=== PATIENT | female | born 1975 | race African-American/Black ===

== ENCOUNTER 2018-09-09 13:33 | Emergency (ER) | payer BC, OTHER ==
[~2018-09-09] VITALS: Ht 170.2 cm; Wt 113.9 kg
[~2018-09-09 13:33] MED LIST: AMLO10TA4 PO; BENA10TA9 PO
[2018-09-09] MEDS ORDERED: hydrALAZINE HCL 50 MG TABLET PO ONE (15:00)
[2018-09-09] MEDS ORDERED: hydrALAZINE HCL 10 MG TABLET PO ONE (15:00)
[2018-09-09 15:12] VITALS: BP 173/89
== END 2018-09-09 15:14 | disposition home or self-care (01) ==
LOC: ER 13:40
DX: I10 Essential (primary) hypertension (principal); J45.909 Unspecified asthma, uncomplicated
CPT/HCPCS: Z7502

== ENCOUNTER 2019-02-17 19:09 | Emergency (ER) | payer OTHER ==
[~2019-02-17] VITALS: Ht 170.2 cm; Wt 115.2 kg
[~2019-02-17 19:09] MED LIST changes: +BENA10TA74 PO; -BENA10TA9 PO
--- NOTE | 2019-02-17 19:27 | NUR ---
PATIENT TO ER BED 9 BIB SELF C/O LUMP ON LEFT SIDE OF NECK. PATIENT STATES THAT SHE NOTICED IT TODAY AND IT MADE IT DIFFICULT TO BREATHE. PAIN IS NOTED WELL. NO FEVER. PATIENT ENDORSES CONGESTION. EXPIRATORY WHEEZING IS HEARD BILATERALLY. AAOX4. NO SOB. BREATHING EVENLY AND UNLABORED. CONNECTED TO MONITOR.
--- NOTE | 2019-02-17 19:28 | NUR ---
HERMILA SOW AT BEDSIDE FOR EVAL
--- NOTE | 2019-02-17 19:37 | NUR ---
RAPID STREP SPECIMEN OBTAINED FROM PT AND SENT TO LAB.
[2019-02-17] MEDS ORDERED: predniSONE 20 MG TABLET ONE (19:40)
--- NOTE | 2019-02-17 19:40 | NUR ---
RT CALLED FOR BRETHING TREATMENT/MEDICATION
[2019-02-17] MEDS ORDERED: ALBUTEROL FS 2.5 MG/3 ML VIAL.NEB ONE (19:46)
[2019-02-17] MEDS ORDERED: IPRATROPIUM NEB FS 0.5 MG/2.5 ML AMPUL.NEB ONE (19:46)
[2019-02-17] MEDS ORDERED: ALBUTEROL FS 2.5 MG/3 ML VIAL.NEB NEB ONE (20:00)
[2019-02-17] MEDS ORDERED: IPRATROPIUM NEB FS 0.5 MG/2.5 ML AMPUL.NEB NEB ONE (20:00)
[2019-02-17] MEDS ORDERED: predniSONE 20 MG TABLET PO ONE (20:00)
--- NOTE | 2019-02-17 20:56 | NUR ---
Patient discharged to home in stable condition. Written and verbal after care instructions given. Patient verbalizes understanding of instruction and RX. PT ambulatory with a steady gait. Pt breathing clearly. VSS.
[2019-02-17 20:57] VITALS: BP 156/108
== END 2019-02-17 20:57 | disposition home or self-care (01) ==
LOC: ER 19:10
DX: J36 Peritonsillar abscess (principal); J45.901 Unspecified asthma with (acute) exacerbation; I16.0 Hypertensive urgency; I10 Essential (primary) hypertension; Z79.899 Other long term (current) drug therapy
CPT/HCPCS: 87070; 87880; 93005; 94640; 99284; J7512; 86403-TC